=== PATIENT | male | born 1980 | race African-American/Black ===

== ENCOUNTER 2023-03-14 16:00 | Emergency (ER) | payer MEDICAID ==
[~2023-03-14] VITALS: Ht 172.7 cm; Wt 85.0 kg
[2023-03-14 16:07] VITALS: TEMP 98.6; O2SAT 98
[2023-03-14 18:45] VITALS: BP 120/71; PULSE 98; RESP 16
[2023-03-14] MEDS ORDERED: ONDANSETRON 4MG/5ML UDC PO ONE (18:45)
[2023-03-14] MEDS ORDERED: IBUPROFEN 400MG TABLET PO ONE (18:45)
[2023-03-14] MEDS ORDERED: IBUP-2028 MT (19:24)
== END 2023-03-14 20:34 | disposition home or self-care (01) ==
LOC: ER 16:00
DX: R51.9 Headache, unspecified (principal); R11.0 Nausea; R42 Dizziness and giddiness
CPT/HCPCS: 82962; 93005; 99283

== ENCOUNTER 2023-03-28 18:13 | Emergency (ER) | payer MEDICAID ==
[~2023-03-28] VITALS: Ht 175.3 cm; Wt 78.0 kg
[~2023-03-28 18:13] MED LIST: IBUP-2028 MT
[2023-03-28 18:19] VITALS: O2SAT 100
[2023-03-28] MEDS ORDERED: ACETAMINOPHEN 325MG TABLET PO ONE (19:00)
[2023-03-28 19:46] VITALS: TEMP 98.5
[2023-03-28 19:48] LABS: CLARITY URINE CLEAR (CLEAR); COLOR URINE YELLOW (YELLOW); GLUCOSE URINE NEGATIVE (NEGATIVE); KETONES URINE NEGATIVE (NEGATIVE); LEUKOCYTE ESTERASE URINE NEGATIVE (NEGATIVE); NITRITE URINE NEGATIVE (NEGATIVE); OCCULT BLOOD URINE NEGATIVE (NEGATIVE); PH URINE 6.5 (4.5-8.0); PROTEIN URINE NEGATIVE (NEGATIVE); SPECIFIC GRAVITY URINE 1.017 (1.005-1.030)
[2023-03-28 19:58] LABS: *AMPHETAMINES SCREEN URINE PRESUMTIVE POSITIVE (NEGATIVE); *BARBITURATES SCREEN URINE NEGATIVE (NEGATIVE); *BENZODIAZEPINES SCREEN URINE NEGATIVE (NEGATIVE); *COCAINE SCREEN URINE NEGATIVE (NEGATIVE); CANNABINOID URINE SCREEN NEGATIVE (NEGATIVE); ECSTASY MDMA SCREEN URINE CONF.TEST INDICATED (NEGATIVE); METHADONE URINE SCREEN NEGATIVE (NEGATIVE); OPIATES URINE SCREEN NEGATIVE (NEGATIVE); PHENCYCLIDINE URINE SCREEN NEGATIVE (NEGATIVE)
[2023-03-28] MEDS ORDERED: IBUPROFEN 400MG TABLET PO ONE (20:00)
[2023-03-28 20:16] VITALS: BP 120/84; PULSE 92; RESP 16
[2023-03-28 20:57] LABS: DIFFERENTIAL COMMENT 0; EOSINOPHILS % 10.6 % (0.0-5.0); HEMATOCRIT. 40.7 % (42.0-52.0); LYMPHOCYTES % 40.7 % (20.0-50.0); MEAN CORPUSCULAR HEMOGLOBIN 24.3 pg (28.0-32.0); MEAN CORPUSCULAR HGB CONC 31.9 g/dL (31.0-37.0); MEAN CORPUSCULAR VOLUME 76.3 fL (80.0-94.0); MEAN PLATELET VOLUME 7.9 fl (7.4-10.4); MONOCYTES % 6.1 % (2.0-8.0); NEUTROPHILS % 41.6 % (40.0-76.0); PLATELET 284 x1000/uL (130-400); RED BLOOD CELL COUNT 5.33 mill/uL (4.7-6.1); RED CELL DISTRIBUTION WIDTH 14.8 % (11.6-14.6); WHITE BLOOD COUNT 6.5 x1000/uL (4.5-11.0)
[2023-03-28 21:15] LABS: CHLORIDE 106 mEq/L (98-107); INDEX HEMOLYSI 1 (1-3); INDEX ICTERIC 1 (1-4); INDEX LIPEMIC 1 (1-3); POTASSIUM 3.6 mEq/L (3.5-5.1); SODIUM 136 mEq/L (136-145)
[2023-03-28 21:22] LABS: ALANINE AMINOTRANSFERASE 67 IU/L (13-61); ALBUMIN 3.8 g/dL (3.4-5.0); ASPARTATE AMINOTRANSFERASE 28 IU/L (15-37); BILIRUBIN TOTAL 0.2 mg/dL (0.1-1.0); CARBON DIOXIDE 30 mEq/L (21-32); CREATININE 1.1 mg/dL (0.6-1.3); ETHANOL BLOOD < 10 mg/dL (-10); GLUCOSE 61 mg/dL (70-105); PROTEIN TOTAL 7.2 g/dL (6.0-8.3); UREA NITROGEN BLOOD 21 mg/dL (7-21)
== END 2023-03-28 22:48 | disposition left against medical advice (07) ==
LOC: ER 18:13
DX: R51.9 Headache, unspecified (principal)
CPT/HCPCS: 36415; 80053; 80305; 80320; 81003; 85025; 99284; G0480

== ENCOUNTER 2023-07-18 11:49 | Emergency (ER) | payer OTHER, MEDICAID ==
[~2023-07-18] VITALS: Ht 177.8 cm; Wt 69.0 kg
[2023-07-18 12:30] VITALS: BP 149/107; PULSE 82; RESP 14; TEMP 98; O2SAT 100
[2023-07-18] MEDS ORDERED: CIPR1DRO2 LEFT EAR (13:18)
== END 2023-07-18 13:35 | disposition home or self-care (01) ==
LOC: ER 11:49
DX: H92.02 Otalgia, left ear (principal)
CPT/HCPCS: 99281